=== PATIENT | female | born 1955 | race Caucasian/White ===

== ENCOUNTER → 2016-09-15 | Outpatient (CLI) | payer OTHER ==
[~2016-09-15] MED LIST: ALBINS/ NEB; ALBUAER2 INH; ASPI-321 PO; BECL0.3A INH; BIOF500C2 PO; CARB1SOL OP; CETI10TA84 PO; CYAN100020 PO; ESTR1CRE PV; GLUC250C PO; HYDR25TA5 PO; LORA-741 PO; METO25TA56 PO; MOME50SP5 NAE; MULT-506 PO; OMG3 PO; TIOT1AER2 INH
--- NOTE | 2016-09-16 17:13 | MAMMOGRAPHY REPORT ---
BILATERAL DIGITAL SCREENING MAMMOGRAM TOMOSYNTHESIS WITH CAD: 09/15/2016 CLINICAL HISTORY: Routine screening. Patient has no complaints. TECHNIQUE: Breast tomosynthesis in addition to standard 2D mammography was performed. Current study was also evaluated with a Computer Aided Detection (CAD) system. COMPARISON: Comparison is made to exams dated: 08/15/2015 mammogram, 08/06/2014 mammogram, 08/27/2015 mammogram, 08/06/2014 ultrasound, 03/21/2013 mammogram, and 09/23/2010 mammogram - [facility]. BREAST COMPOSITION: There are scattered areas of fibroglandular density in both breasts. FINDINGS: There are multiple bilateral circumscribed masses scattered in the breasts, some of which are fluctuating comparing to prior mammograms. There are diffuse bilateral benign-appearing microca lcifications, most likely representing fibrocystic changes. Mild vascular calcifications as well. No new suspicious spiculated or irregular mass, architectural distortion or cluster of new suspiciou s microcalcifications is seen. IMPRESSION: ACR BI-RADS CATEGORY 1: NEGATIVE There is no mammographic evidence of malignancy. A 1 year screening mammogram is recommended. The p atient will receive written notification of the results. Approximately 10% of breast cancers are not detected with mammography. A negative mammographic repor t should not delay biopsy if a clinically suggestive mass is present. Shobha Sims M.D. ay/:09/16/2016 16:37:45 Ethnic Studies Professor: Madison BRIDGES(Miguel)(Kaci), [facility] letter sent: Normal 1/2 BI-RADS Code: ACR BI-RADS Category 1: Negative
== END | disposition home or self-care (01) ==
LOC: C.MAMM 08:44
PROVIDERS: ATTEND Obstetrics & Gynecology
DX: Z12.31 Encounter for screening mammogram for malignant neoplasm of breast (principal)

== ENCOUNTER → 2017-08-06 | Outpatient (CLI) | payer OTHER ==
[2017-08-06 12:54] LABS: BASO % 0.6 %; BASO ABS # 0.03 K/uL (0-0.2); EOS % 2.7 %; EOS ABS # 0.14 K/uL (0-0.5); HEMATOCRIT 41.2 % (37-47); HEMOGLOBIN 13.6 g/dL (12.0-16.0); IG# 0.01 K/uL (0.00-0.02); LYMPH % 35.8 %; LYMPH ABS # 1.89 K/uL (1.2-3.4); MEAN CELL VOLUME 94.5 fL (80-100); MEAN CORPUSCULAR HEMOGLOBIN 31.2 pg (25-34); MEAN PLATELET VOLUME 11.2 fL (7.4-10.4); MONO % 10.8 %; MONO ABS # 0.57 K/uL (0.11-0.59); NEUT % 49.9 %; NEUT ABS # 2.64 K/uL (1.4-6.5); PLATELET COUNT 253 K/uL (130-400); RED CELL DISTRIBUTION WIDTH CV 14.5 % (11.5-14.5); RED CELL DISTRIBUTION WIDTH SD 49.8 fL (36.4-46.3); WHITE BLOOD COUNT 5.28 K/uL (4.8-10.8)
[2017-08-06 13:16] LABS: BLOOD UREA NITROGEN 18 mg/dl (7-18); CALCIUM 8.9 mg/dl (8.5-10.1); CARBON DIOXIDE 31 mmol/L (21-32); CREATININE 0.86 mg/dl (0.60-1.20); GLUCOSE 89 mg/dl (70-99); POTASSIUM 3.6 mmol/L (3.5-5.1); SODIUM 140 mmol/L (136-145)
== END | disposition home or self-care (01) ==
LOC: C.LABPVFM 07:47
PROVIDERS: ATTEND Family Medicine
DX: R53.83 Other fatigue (principal)

== ENCOUNTER → 2017-10-22 | Outpatient (CLI) | payer OTHER ==
--- NOTE | 2017-10-25 13:59 | MAMMOGRAPHY REPORT ---
BILATERAL DIGITAL SCREENING MAMMOGRAM TOMOSYNTHESIS WITH CAD: 10/22/2017 CLINICAL HISTORY: Routine screening. TECHNIQUE: Breast tomosynthesis in addition to standard 2D mammography was performed. Current study was also evaluated with a Computer Aided Detection (CAD) system. COMPARISON: Comparison is made to exams dated: 09/15/2016 mammogram, 08/15/2015 mammogram, 08/06/2014 ma mmogram, 03/21/2013 mammogram, 12/01/2011 mammogram, and 09/23/2010 mammogram - [facility]. BREAST COMPOSITION: There are scattered areas of fibroglandular density in both breasts. FINDINGS: No suspicious masses, calcifications, or areas of architectural distortion are noted in ei ther breast. There has been no significant interval change compared to prior exams. Scattered bilate ral circumscribed benign-appearing masses are again noted. A dominant mass within the right upper out er quadrant contains coarse popcorn calcifications and is consistent with a degenerating fibroadenoma . Other scattered bilateral benign-appearing calcifications are also not significantly changed. IMPRESSION: ACR BI-RADS CATEGORY 2: BENIGN There is no mammographic evidence of malignancy. A 1 year screening mammogram is recommended. The pa tient will receive written notification of the results. Approximately 10% of breast cancers are not detected with mammography. A negative mammographic report should not delay biopsy if a clinically suggestive mass is present. Nessa Yu M.D. /:10/22/2017 16:19:45 Principal Product Manager: Madison GOMEZ)(Kaci), [facility] letter sent: Normal 1/2 BI-RADS Code: ACR BI-RADS Category 2: Benign
== END | disposition home or self-care (01) ==
LOC: C.MAMM 08:56
PROVIDERS: ATTEND Obstetrics & Gynecology
DX: Z12.31 Encounter for screening mammogram for malignant neoplasm of breast (principal)

== ENCOUNTER 2022-10-20 06:48 | Observation (INO) ==
--- NOTE | 2022-09-24 14:56 | PAT Medication Instructions ---
Medication Instructions Date of Service September 24, 2022 Home Medications Medication Instructions Recorded lorazepam 0.5 mg tablet 0.5 mg PO DAILY PRN anxiety #30 10/07/21 tabs hydrochlorothiazide 25 mg tablet 25 mg PO DAILY #90 tabs 10/20/21 albuterol sulfate 90 mcg/actuation 2 puff inhalation Q4H PRN 06/12/22 aerosol inhaler (ProAir HFA) shortness of breath or wheezing #3 Inhalers budesonide 180 mcg/actuation 1 inh inhalation BID #3 Inhalers 07/31/22 breath activated powder inhaler (Pulmicort Flexhaler) meclizine 25 mg tablet 25 mg PO TID PRN dizziness #60 tabs 09/21/22 albuterol sulfate 2.5 mg/3 mL 2.5 mg (3 mL) inhalation DAILY 09/23/22 (0.083 %) solution for nebulization #180 mL Medication List cetirizine 10 mg capsule (Zyrtec) 10 mg PO DAILY PRN FOR ALLERGY RELIEF cholecalciferol (vitamin D3) 50 mcg (2,000 unit) tablet (Vitamin D3) 2,000 unit PO QAM multivitamin 2 tab PO QAM vit C 50 mg-E 15 unit-zinc cit 4.5 mg-lutein 2.5 mg-zeaxan chew tablet ([facility] [place]) 1 tab PO QAM acetaminophen 500 mg tablet (Tylenol Extra Strength) 500 - 1,000 mg PO .COMPLEX PRN Pain levalbuterol HCl 1.25 mg/3 mL solution for nebulization 1.25 mg inhalation .COMPLEX PRN SHORT OF BREATH lorazepam 0.5 mg tablet 0.5 mg PO DAILY PRN anxiety hydrochlorothiazide 25 mg tablet 25 mg PO DAILY albuterol sulfate 90 mcg/actuation aerosol inhaler (ProAir HFA) 2 puff inhalation Q4H PRN shortness of breath or wheezing budesonide 180 mcg/actuation breath activated powder inhaler (Pulmicort Flexhaler) 1 inh inhalation BID meclizine 25 mg tablet 25 mg PO TID PRN dizziness Prevagen 1 cap PO QAM albuterol sulfate 2.5 mg/3 mL (0.083 %) solution for nebulization 2.5 mg (3 mL) inhalation DAILY amino acids (Amino Acid capsule) 1 cap PO UD calcium carbonate 500 mg-vitamin D3 10 mcg (400 unit) tablet (Calcium 500 + D) 1 tab PO QAM carboxymethylcellulose 1 %-glycerin 0.9 % eye gel drops (Refresh Optive) 1 drp ophthalmic (eye) HS cyanocobalamin (vitamin B-12) 2,000 mcg tablet,extended release (Vitamin B-12 ER) 2,000 mcg PO QAM ibuprofen 200 mg capsule 600 mg PO TID PRN Pain Continue as directed IF TAKING MORNING OF SURGERY, TAKE WITH A SMALL SIP OF WATER. OTHERWISE NOTHING TO EAT OR DRINK AFTER MIDNIGHT acetaminophen 500 mg tablet (Tylenol Extra Strength) 500 - 1,000 mg PO .COMPLEX PRN Pain levalbuterol HCl 1.25 mg/3 mL solution for nebulization 1.25 mg inhalation .COMPLEX PRN SHORT OF BREATH lorazepam 0.5 mg tablet 0.5 mg PO DAILY PRN anxiety albuterol sulfate 90 mcg/actuation aerosol inhaler (ProAir HFA) 2 puff inhalation Q4H PRN shortness of breath or wheezing budesonide 180 mcg/actuation breath activated powder inhaler (Pulmicort Flexhaler) 1 inh inhalation BID albuterol sulfate 2.5 mg/3 mL (0.083 %) solution for nebulization 2.5 mg (3 mL) inhalation DAILY meclizine 25 mg tablet 25 mg PO TID PRN dizziness ASK your surgeon for instructions ibuprofen 200 mg capsule 600 mg PO TID PRN Pain STOP taking 2 weeks before surgery vit C 50 mg-E 15 unit-zinc cit 4.5 mg-lutein 2.5 mg-zeaxan chew tablet ([facility]) 1 tab PO QAM Prevagen 1 cap PO QAM amino acids (Amino Acid capsule) 1 cap PO UD DO NOT take the morning of surgery cetirizine 10 mg capsule (Zyrtec) 10 mg PO DAILY PRN FOR ALLERGY RELIEF cholecalciferol (vitamin D3) 50 mcg (2,000 unit) tablet (Vitamin D3) 2,000 unit PO QAM multivitamin 2 tab PO QAM hydrochlorothiazide 25 mg tablet 25 mg PO DAILY cyanocobalamin (vitamin B-12) 2,000 mcg tablet,extended release (Vitamin B-12 ER) 2,000 mcg PO QAM calcium carbonate 500 mg-vitamin D3 10 mcg (400 unit) tablet (Calcium 500 + D) 1 tab PO QAM Take evening before surgery cetirizine 10 mg capsule (Zyrtec) 10 mg PO DAILY PRN FOR ALLERGY RELIEF (okay to take if you typically take in PM) carboxymethylcellulose 1 %-glycerin 0.9 % eye gel drops (Refresh Optive) 1 drp ophthalmic (eye) HS Other Notes If you have any questions please call us at [phone] or [phone] or [phone] or [phone]
--- NOTE | 2022-09-28 09:31 | Anesthesiology Consultation ---
Date of Service September 28, 2022 Assessment & Plan (1) Encounter for pre-operative examination: - COVID screening: Per assessment on 09/28: No known COVID-19 positive contacts. Travel screen negative. Patient vaccinated. Patient did report a few days of congestion/runny nose starting mid 09/2022 - per patient has this is chronic issue that happens intermittently in setting of allergies (no change from baseline)- currently feeling well. Covid test done at PAT 09/28/22 was negative. - PCP office visit (09/21/22): "BPV.. patient notes that her vertigo is starting to act up. She has had the Edilson maneuver in the past, which seemed to help.. She would like to F/U with physical therapy.. ERxed Meclizine.. Pain Right 2nd toe.. patient notes that her fingers and toes get cold. Her toes are usually not bad with use of socks and shoes.. on exam, patient's toe has some tenderness at the tip. Does not appear to be significant arthritis. No skin breakdown to indicate an ulcer. patient does have good pulses in her Right foot.. etiology unclear.. DDx includes gout, however the joints of her toe do not seem to be involved.. early infection / ulcer: possible, but if this is present, then it is mild. Consider starting antibiotics to possibly cover for this.. consider F/U with podiatry.. Raynaud phenomenon.. patient has cold fingers / toes" > Per update with patient 09/29/22, toe pain improved. Advised to contact PAT/PCP if recurrence/worsening prior to surgery. - Cardiology office visit (09/24/22): "Patient's only cardiac history dates back to 2008 when she had an episode of atrial fibrillation. She spontaneously converted back to normal sinus rhythm and her subsequent workup was unremarkable. She had a structurally and functionally normal heart. Subsequent cardiac monitoring did not show any recurrence of atrial fibrillation.. EKG was done today and shows a normal sinus rhythm at 69 bpm with a nonspecific ST abnormality. No change when compared to 10/27/2014 tracing.. Based on the patient's functional status without limiting cardiopulmonary symptoms and her stable EKG tracing -- patient is an acceptable surgical risk to proceed with surgery as scheduled. There is no need for further ischemic workup at this time..She was encouraged to monitor her infrequent palpitations -- and if in the future she has a fast erratic pulse, sustained elevated pulse rate, etc she should have further evaluation in case it is a recurrence of atrial fibrillation. We would then provided rate lowering medications and anticoagulation. Her [id number] is 3 based on her age, gender, and hypertension. Patient agrees with this plan. All of her questions were answered to her satisfaction." - Outpatient joint assessment: Pt currently scheduled for inpatient pathway. If surgeon requests review for outpatient joint pathway, patient is not recommended candidate for outpatient joint program from anesthesia standpoint. - Chlorhexidine/Hibiclens allergy: Severe hives listed in allergies. Per patient, she believes this was with cleanser used perioperatively in the past. Chlorhexidine wipes not given at PAT visit. Chart Review Chart Review: Acceptable Risk for Surgery and Patient seen in Pre Admission Testing Teaching & Discussion Pre-Anesthesia Teaching/Discussion Notes: Instructed NPO after midnight before surgery,except medications with 15 cc of water. Medication instructions provided according to the PAT guidelines. History Surgery Operation Date: 10/20/22 10:40 Proposed Procedures p Right Total Knee Arthroplasty - Rachid Ann MD Height/Weight Height: 5 ft 4 in Weight: 69.3 kg Allergies Allergy/AdvReac Type Severity Reaction Status Date / Time chlorhexidine Allergy Severe Severe Verified 09/28/22 11:28 hives bacitracin Allergy Intermediate Hives Verified 09/24/22 10:41 [From Neosporin ([id number])] cefuroxime Allergy Intermediate Hives Verified 09/24/22 10:41 neomycin Allergy Intermediate Hives Verified 09/24/22 10:41 polymyxin B Allergy Intermediate Hives Verified 09/24/22 10:41 prednisone Allergy Intermediate Hives Verified 09/24/22 10:41 Sulfa (Sulfonamide Allergy Intermediate Hives Verified 09/28/22 11:28 Antibiotics) sulfamethoxazole Allergy Intermediate Hives Verified 09/28/22 11:28 tetracycline Allergy Intermediate Hives Verified 09/28/22 11:28 zinc Allergy Intermediate Hives Verified 09/28/22 11:28 adhesive Allergy Mild Bandaids/ta Verified 09/28/22 11:28 pe levofloxacin [From Levaquin] AdvReac Severe Severe Verified 09/24/22 10:41 joint pain gabapentin AdvReac Intermediate Palpitation Verified 09/28/22 11:28 s meperidine AdvReac Mild Arm pain x Verified 09/28/22 11:28 3 days ("upset veins") metronidazole AdvReac Mild Thrush Verified 09/28/22 11:28 Medications Home Medications Medication Instructions Recorded Confirmed Last Taken cetirizine 10 mg capsule (Zyrtec) 10 mg PO DAILY PRN FOR ALLERGY 03/16/19 09/24/22 04/03/19 RELIEF cholecalciferol (vitamin D3) 50 2,000 unit PO QAM 03/16/19 09/24/22 04/04/19 09:00 mcg (2,000 unit) tablet (Vitamin D3) multivitamin 2 tab PO QAM 03/16/19 09/24/22 04/04/19 09:00 vit C 50 mg-E 15 unit-zinc cit 4.5 1 tab PO QAM 03/16/19 09/24/22 Unknown mg-lutein 2.5 mg-zeaxan chew tablet ([facility] [employer]) acetaminophen 500 mg tablet 500 - 1,000 mg PO .COMPLEX PRN Pain 04/25/19 09/24/22 Unknown (Tylenol Extra Strength) levalbuterol HCl 1.25 mg/3 mL 1.25 mg inhalation .COMPLEX PRN 04/25/19 09/24/22 Unknown solution for nebulization SHORT OF BREATH lorazepam 0.5 mg tablet 0.5 mg PO DAILY PRN anxiety #30 10/07/21 09/24/22 Unknown tabs hydrochlorothiazide 25 mg tablet 25 mg PO DAILY #90 tabs 10/20/21 09/24/22 Unknown albuterol sulfate 90 mcg/actuation 2 puff inhalation Q4H PRN 06/12/22 09/24/22 Unknown aerosol inhaler (ProAir HFA) shortness of breath or wheezing #3 Inhalers budesonide 180 mcg/actuation 1 inh inhalation BID #3 Inhalers 07/31/22 09/24/22 Unknown breath activated powder inhaler (Pulmicort Flexhaler) meclizine 25 mg tablet 25 mg PO TID PRN dizziness #60 tabs 09/21/22 09/24/22 Unknown Prevagen 1 cap PO QAM 09/23/22 09/24/22 Unknown albuterol sulfate 2.5 mg/3 mL 2.5 mg (3 mL) inhalation DAILY 09/23/22 09/24/22 Unknown (0.083 %) solution for nebulization #180 mL amino acids (Amino Acid capsule) 1 cap PO UD 09/23/22 09/24/22 Unknown calcium carbonate 500 mg-vitamin 1 tab PO QAM 09/23/22 09/24/22 Unknown D3 10 mcg (400 unit) tablet (Calcium 500 + D) carboxymethylcellulose 1 1 drp ophthalmic (eye) HS 09/23/22 09/24/22 Unknown %-glycerin 0.9 % eye gel drops (Refresh Optive) cyanocobalamin (vitamin B-12) 2,000 mcg PO QAM 09/23/22 09/24/22 Unknown 2,000 mcg tablet,extended release (Vitamin B-12 ER) ibuprofen 200 mg capsule 600 mg PO TID PRN Pain 09/23/22 09/24/22 Unknown Past Medical History Medical History Anxiety Asthma well controlled. Atrial fibrillation HX OF 2008 (NO INTERVENTION REQUIRED) - no current problems. follows with Chronic rhinitis Degenerative disc disease Depression Dry eye syndrome Essential tremor benign essential tremor GERD (gastroesophageal reflux disease) History of COVID-19 Summer 2021 - mild cold symptoms. Hyperlipidemia BORDERLINE ELEVATED Kidney stones Migraine HX OF Obstructive sleep apnea no longer uses the machine. Osteoarthritis Osteoarthritis of knees, bilateral Osteoporosis Overactive bladder Palpitations occasionally -- follows with Dr Ames. Temporomandibular joint disorder night grinding, uses a mouth guard. never locked Vertebral compression fracture Vertigo recently flared up. has meclizine if needed. Exercise / Class Metabolic Activity III < 4 Walking/Shop/Light housework (one FS (no CP, + SOB)) Past Family History Family History Father Family history of diabetes mellitus Alzheimer disease Diabetes Mother Family hx of colon cancer Alzheimer disease Breast cancer Thyroid disease Aunt Breast cancer maternal Ovarian cancer maternal Past Surgical History Surgical History Family history of reaction to anesthesia MOTHER-TROUBLE WAKING UP FROM H/O laparoscopy diagnostic History of appendectomy History of arthroscopy RT KNEE History of breast biopsy History of cardiac cath 2007 (NO STENTS) History of cataract surgery RT/LEFT History of colonoscopy History of tooth extraction Retinal tear of both eyes REPAIRED VIA LASER SURGERY S/P excision of lipoma from buttock and back. S/P total abdominal hysterectomy with BSO and posterior repair. Past Anesthesia History No Hx of Anesthesia Complications Mother- slow to wake History of PONV No Hx of PONV and Hx of Motion Sickness (+ Vertigo) Social History Smoking Status: Never smoker Do You Dip or Chew Tobacco: No Hx Alcohol Use: Yes Alcohol type: wine alcohol intake frequency: a few times a month Hx Substance Use: No substance use type: does not use Review of Systems Rare palpitations. Chronic allergies- congestion/runny nose. Patient denies chest pain, shortness of breath, fever, chills, cough, wheezing. Physical Exam Vital Signs VITALS BP 120/81 P 65 TEMP 98.4 SP02 99%RA RESP 16 PHYSICAL Full cervical extension range of motion. Full TMJ range of motion. TMD 3 finger breaths Mallampati Score 1 Dentition: missing side, + several crowns Lungs: clear throughout to auscultation Cardiac: regular rate and rhythm, no murmurs noted Spine: normal Carotid arteries: negative bruit Extremities: no edema Lab Results Anesthesia Preop Results Results Anesthesia Widget: WBC 4.79 K/ul (4.8-10.8) L 09/28/22 Hgb 13.8 g/dl (12.0-16.0) 09/28/22 Hct 40.4 % (37.0-47.0) 09/28/22 Plt 258 K/uL (130-400) 09/28/22 Na 140 mmol/L (136-145) 09/28/22 K 3.7 mmol/L (3.5-5.1) 09/28/22 Cl 103 mmol/L (98-107) 09/28/22 CO2 32 mmol/L (21-32) 09/28/22 BUN 23 mg/dl (6-23) 09/28/22 Creat 0.85 mg/dl (0.6-1.2) 09/28/22 Glucose Level 80 mg/dl (70-99(Fasting)) 09/28/22 PT 11.4 Seconds (9.0-12.0) 09/28/22 PTT 27.7 Seconds (21.0-31.0) 09/28/22 INR 1.1 (0.9-1.1) 09/28/22 TSH 1.529 uIu/ml (0.300-4.500) 09/22/22 Blood Type O Positive 09/28/22 Antibody Screen NEGATIVE 09/28/22 Testing Electrocardiogram Date: 09/24/22 NSR at 66bpm. NS STA. No change compared to 10/27/14 per aircraft worker comparison. Chest X-Ray Date: 09/28/22 FINDINGS: Lung volumes are normal. There is no consolidation to suggest pneumonia. A density along the left heart border is unchanged since chest radiograph of June 22, 2014. There is no pneumothorax or pleural effusion. Cardiac size is normal. Mediastinal contours are normal. There is no evidence for pulmonary edema. Calcified density within the right breast projects over the right lower lung. IMPRESSION: No acute cardiopulmonary findings. COVID-19 Risk Screen Screening Information COVID-19 Screen Date: 09/28/22 Exposure 21 Days Family/Household +COVID Last 21 Days: No Exposure 10 Days Any COVID Exposure Last 10 Days: No Symptoms Last 10 Days Experienced COVID Sx Last 10 Days: Yes Sx Experienced Last 10 Days: Congestion/Runny Nose Covid Sx 10 Day Pathway: If patient has symptoms, they should follow up with their PCP/surgeon to be COVI D -19 tested and for further instructions related to their illness. Order COVID Testing COVID-19 Test Result pathway: * If the COVID Test is Negative, other risk factors are acceptable, and the patient is feeling well; proceed with procedure. * If the COVID-19 test is Positive: * Elective procedures will be cancelled/rescheduled per Policy 1096. * Urgent or Emergent procedures will need documentation that the procedure is medically necessary and precautions implemented per Policy 1096. Policies and Procedures Refer to Policy and Procedure 1096 for Initiation & Discontinuation of Transmission-Based Precautions for Confirmed and Suspected SARS-CoV-2 Infection which can be found on the Intranet in the Clinical Resources Manual by clicking on the link below: [email or web address]%20Disco ntinuation%20of%20Transmission.pdf#search=discontinuation%20of%20Transmission%2D Based + COVID 0-90 Days COVID + in Last 0-90 Days: No
--- NOTE | 2022-10-16 09:25 | History and Physical Report ---
CHIEF COMPLAINT: Right knee pain and discomfort. HISTORY OF PRESENT ILLNESS: A 66-year-old female with a long history of right knee pain and discomfo rt and describes it has gotten worse over time. Pain is mostly medial, but some global pain. The mo re she is up and on her leg, the more it hurts. It swells up more as the day goes on. She limps mor e as the day goes on. She has been through extensive conservative treatment and the injections just do not help anymore. She would like to have her right knee fixed. PAST MEDICAL HISTORY: 1. History of atrial fibrillation one episode without recurrence back in 2008. 2. Hypertension. 3. Asthma. 4. Sleep apnea with CPAP machine. 5. Back pain/sciatica. PAST SURGICAL HISTORY: Includes: 1. Appendectomy. 2. Hysterectomy. 3. Heart catheterization. 4. Lipoma removal. 5. Hip surgery. 6. Cataract surgery. 7. Retina surgery. ALLERGIES: HIBICLENS, WHICH CAUSES HIVES. ALSO, DESCRIBES ALLERGIES TO PREDNISONE AND CEFUROXIME. CURRENT MEDICATIONS: Include: 1. Tylenol. 2. Albuterol. 3. Pulmicort. 4. Zyrtec. 5. Vitamin B12. 6. Glucosamine. 7. Hydrochlorothiazide. 8. Lorazepam. 9. Levalbuterol. 10. Meclizine. 11. Metoprolol. 12. Multivitamin. 13. Ocuvite. SOCIAL HISTORY: A 66-year-old female. She does not smoke. No significant alcohol intake. FAMILY HISTORY: Noncontributory. REVIEW OF SYSTEMS: Negative for diabetes. Denies any chest pain or shortness of breath. No history of DVT or PE. No known bleeding problems. PHYSICAL EXAMINATION: GENERAL: Shows a pleasant middle-aged female, looks in reasonably good health. HEENT: Benign. NECK: Supple. No lymphadenopathy. LUNGS: Clear to auscultation. HEART: Regular rate and rhythm. ABDOMEN: Soft, nontender, nondistended. EXTREMITIES: Grossly neurovascularly intact except as follows. Examination of the right leg and knee revealed patient ambulates independently. She does limp on the right side. She has got varus alignment to her right knee. Tender over the medial joint line. Sma ll knee effusion. Range of motion 5-125. No instability. No pain with hip motion. X-RAYS: X-rays of the right knee reviewed. It shows advanced right knee DJD. She has complete loss of medial joint space. Osteophytes medially. This has progressed over the past year. ASSESSMENT: A 66-year-old female with a history of atrial fibrillation, hypertension, asthma, sleep apnea, and back pain/sciatica with advanced right knee degenerative joint disease. She has failed co nservative measures and would like to have her right knee replaced. PLAN: We will proceed with right total knee replacement. The risks and benefits of this procedure w ere explained to the patient and include but not limited to DVT, PE, , infection, neurological i njury, vascular injury, bleeding problem, pain, limited range of motion, incomplete relief of symptom s, etc. The patient understands and desires to proceed. Informed consent was obtained. She does live by herself. Her daughter is going to come and assist in her care. She is hoping to be discharged to home with some home health. Job ID: [id number]
[~2022-10-20 06:48] MED LIST changes: +ACETAMINOPHEN 500 MG TAB PO SCH; -ALBINS/ NEB; -ALBUAER2 INH; +ALLERGY Noted to ORDERED Medication SCH; -ASPI-321 PO; -BECL0.3A INH; -BIOF500C2 PO; +BUPIVACAINE 0.5 % 5 MG/1 ML PF 10ML VIAL ONE; +BUPIVACAINE LIPOSOME/PF 266 MG, BUPIVACAINE/EPINEPHRINE 50 ML, SODIUM CHLORIDE 0.9% PF ... INFIL SCH; -CARB1SOL OP; -CETI10TA84 PO; -CYAN100020 PO; +CeleBREX 200 MG CAP PO SCH; -ESTR1CRE PV; +FAMOTIDINE 20 MG TAB PO SCH; -GLUC250C PO; -HYDR25TA5 PO; -LORA-741 PO; +LR 500ML BOLUS, THEN 15ML/HR IV SCH; +LR 60ML/HR IV SCH; -METO25TA56 PO; +METOCLOPRAMIDE HCL 10 MG TABLET PO SCH; -MOME50SP5 NAE; -MULT-506 PO; -OMG3 PO; +ROPIVACAINE 0.5% 5 MG/ML 30 ML VIAL ONE; +Scopolamine 1 MG TDSY TD SCH; -TIOT1AER2 INH; +TRANEXAMIC ACID 1,000 MG **IV Intra-op IV SCH
--- NOTE | 2022-10-20 06:57 | History & Physical Bridge Note ---
Date of Service October 20, 2022 History & Physical Bridge Note I have examined the patient, reviewed the History & Physical and in the interval since the performance of the History & Physical I have noted the following changes of clinical significance: no changes noted
[2022-10-20] MEDS ORDERED: MIDAZOLAM HCL 1 MG/ML 2ML VIAL ONE ×2 (08:08)
[2022-10-20] MEDS ORDERED: PROPOFOL IV EMULSION 10 MG/ML 20 ML VIAL IV ONE (08:11)
[2022-10-20] MEDS ORDERED: HYDROmorphone INJ 2 MG/ML SYR/VIAL IV PRN (08:31)
[2022-10-20] MEDS ORDERED: ATROPINE SULFATE 0.1 MG/ML 10ML SYR IV PRN (08:31)
[2022-10-20] MEDS ORDERED: ePHEDrine sulfate 50 MG/ML AMP IV PRN (08:31)
[2022-10-20] MEDS ORDERED: fentaNYL citrate PF 100 MCG/2 ML VIAL IV PRN (08:31)
[2022-10-20] MEDS ORDERED: ONDANSETRON INJ 2 MG/ML 2 ML VIAL IV PRN ×2 (08:31→11:46)
[2022-10-20] MEDS ORDERED: ceFAZolin 2,000 MG/15 ML IV PUSH IV ONE (08:37)
[2022-10-20] MEDS ORDERED: BUPIVACAINE/EPINEPHRINE 0.25% 1:200,000 30 ML VIAL ONE (09:10)
[2022-10-20] MEDS ORDERED: BUPIVACAINE LIPOSOME 1.3% 266 MG/20 ML VIAL ONE (09:11)
[2022-10-20] MEDS ORDERED: SODIUM CHLORIDE 0.9% PF 50 ML VIAL ONE (09:12)
[2022-10-20] MEDS ORDERED: DEXAMETHASONE SOD INJ 4 MG/ML VIAL ONE (10:19)
[2022-10-20] MEDS ORDERED: KETOROLAC 30 MG/ML VIAL ONE (10:19)
--- NOTE | 2022-10-20 10:51 | Operative Report ---
PG Post Operative Report Pre & Post Diagnosis Operation Date: 10/20/22 08:50 Pre-Op Diagnosis: Advanced right knee degenerative joint disease Post-Op Diagnosis: Advanced right knee degenerative joint disease I identified the patient and participated in the time-out.: Yes Procedure Operation Date: 10/20/22 08:50 Actual Procedures p Right Total Knee Arthroplasty(Right) - Rachid Ann MD Surgeon Rachid Ann MD Key Account Manager Adrian Duarte PA-C Estimated Blood Loss 50 Findings Consistent with Post-Op Diagnosis Operative findings were advanced right knee DJD. She had extensive grade 4 [id number] disease of the medial compartment. The rest of her knee looked pretty well-preserved. She had osteophytes medially. Eburnation of the bone as well. Moderate-sized joint effusion. Slight fixed varus deformity to her knee. Specimens Right knee sent for pathology Drains None Anesthesia Type General Complications none Disposition Accompanied Patient To Recovery: No Indications Patient is a 66-year-old female is had a several year history of increasing right knee pain discomfort has become less responsive conservative care. It started affect her quality of life and ability maintain any degree of active lifestyle. X-rays show advanced knee arthritis. She failed conservative measures and elected proceed with total knee arthroplasty. Description of Procedure Operative implants consist of: 1 Biomet Vanguard size 67.5 right posterior stabilized femoral component. 2. Biomet size 67 tibial tray. 3. 10 mm posterior stabilized Lyes polyethylene insert. 4. 28 x 8 all poly patella. The patient was taken the operating, identified, placed on the operating table supine position but all contact areas were appropriately padded. IV antibiotics tried by anesthesia team. A spinal anesthetic and abductor canal block had provided in the holding area. Colunga catheter was placed in sterile fashion and a right thigh high tourniquet was then placed in the right lower extremity then prepped and draped in usual sterile fashion. The right leg was elevated exsanguinated with use of an Esmarch and the to urniquet was set at 300 mmHg. An anterior approach of the right knee was then performed to longitudinal incision centered over the patella. Sharp dissection was carried through subcutaneous tissue down the extensor mechanism. A medial parapatellar arthrotomy incision was made. Some subperiosteal dissection was carried out medially. The fat pad was dissected from Neath patella tendon. Lateral patellofemoral ligament was released. Patella subluxated laterally and the knee was flexed. The osteophytes were taken off distal femur. The ACL and PCL were then released from the distal femur the tibia subluxated anteriorly. The external tibial alignment jig was then placed in the interface the tibia and adjusted 14 mm medially. Proximal tibial cut was made to remove about a millimeter or 2 of bone from most deficient aspect medial tibial plateau. The tibia was sized to a size 67. Attention drawn the femur. The distal femur examined the sharp drop with intramedullary canal was suction. A right 5 degree valgus cutting guide was placed. Distal femoral cutting block was pinned in place. Distal femoral cut was made to take an additional 3 mm of bone off distal femur. The femur was then sized to a size 67.5. The AP cutting block was pinned parallel to the epicondylar axis which was 3 degrees of external rotation. Anterior cut, anterior chamfer, posterior cut, posterior chamfer cuts were made. The box cutting guide was placed in just slight lateral box cut was made. The knee was flexed. The remnants of the medial and lateral menisci were excised. The osteophytes taken off the posterior aspect the femur. A trial femoral component was placed. The tibial tray was pinned in maximum external rotation and the drill and stem punch were used to create defect in proximal tibia for the tibial tray. Knee was then trialed and the 10 mm insert fit most appropriately. Attention drawn the patella. The patella was cleaned of all soft tissues. Patella thickness measured 19 mm in thickness and was cut down to 12. Was sized to a size 28 patella. The lug holes were drilled for the 28 patella. Lateral osteophytes removed. Patella button was placed. Knee was taken through range of motion and the patella tracked nicely with no thumbs test. Attention drawn to placing permanent components. Nupathe all trial components were removed. A bone plug was placed into the distal femur limit blood loss. Double batch Palacos G cement was mixed. A Biomet Vanguard size 67.5 right posterior stabilized femoral component, size 67 tibial tray, 10 mm posterior stabilized polyethylene insert, and a 28 x 8 all Paller patella then cemented in place. The knee was brought out into full extension till cement hardened. Final cement check was then performed. The pericapsular tissues were injected with total of 100 cc of combination of 20 cc of Exparel, 30 cc normal saline, 50 cc of quarter percent Marcaine with epinephrine. Patient did receive 1 g of tranexamic acid but the tourniquet was let down for final tourniquet time of 50 minutes. Hemostasis reduced electrocautery. Extensor mechanism closed with combination 1 PDS suture and 1 Vicryl suture in a [id number] fashion. Extensor mechanism checked found to be intact with subcutaneous tissue then closed with 2 Dexon suture in a buried interrupted fashion skin was closed skin cheryle. Leg was then cleaned and dried a sterile dressing with Xeroform, 4 fours, sterile cast padding, ABD pad, Sam bandage was applied. The patient then transferred to the recovery room in stable condition. Patient tolerated the procedure well and there were no complications. Adrian Duarte, my physician marketing administrative assistant, was present for the entire procedure. His assistance was essential and required for appropriate patient positioning, prepping and draping, surgical exposure, performing the technical details of the operation, placement the implants, closure of the wound, and placement of the sterile bandage. I attest to the content of the Intraoperative Record and any orders documented therein. Any exceptions are noted below.
--- NOTE | 2022-10-20 10:54 | XRay Report ---
RIGHT KNEE 2 VIEWS History: Right total knee arthroplasty. Degenerative arthritis. Postop. FINDINGS: The patient is status post a right total knee arthroplasty. The hardware is intact. No frac ture or dislocation. Skin cheryle are in place. IMPRESSION: Right total knee arthroplasty. No evidence for hardware complication. ACT 112: Negative or not required by law. Electronically signed by: Alessio Bowen M.D. 10/20/2022 10:53 AM
[2022-10-20] MEDS ORDERED: METOCLOPRAMIDE HCL INJ 5 MG/ML 2 ML VIAL IV PRN (11:46)
[2022-10-20] MEDS ORDERED: HYDROmorphone INJ 0.5 MG/0.5 ML SYR IV PRN (11:46)
[2022-10-20] MEDS ORDERED: MAGNESIUM HYDROXIDE SUSP 30 ML UDC PO PRN (11:46)
[2022-10-20] MEDS ORDERED: NON-FORMULARY MEDICATION (Amino Acids [Amino Acid] Capsule) PO SCH (11:46)
[2022-10-20] MEDS ORDERED: MECLIZINE HCL 25 MG TAB PO PRN (11:46)
[2022-10-20] MEDS ORDERED: bisacodyL 10 MG SUPP PR PRN (11:46)
[2022-10-20] MEDS ORDERED: LEVALBUTEROL HCL 1.25 MG/3 ML NEB INH PRN (11:46)
[2022-10-20] MEDS ORDERED: LORazepam 0.5 MG TAB PO PRN (11:46)
[2022-10-20] MEDS ORDERED: SODIUM CHLORIDE 0.9% 1000ML 1,000 ML IV SCH (11:46)
[2022-10-20] MEDS ORDERED: ALUMINUM/MAGNESIUM SUSP 30 ML UDC PO PRN (11:46)
[2022-10-20] MEDS ORDERED: NALOXONE HCL 0.4 MG/1 ML VIAL/CARP IV PRN (11:46)
[2022-10-20] MEDS ORDERED: ALBUTEROL HFA 8 GM INHALER INH PRN (11:46)
--- NOTE | 2022-10-20 12:21 | Anesthesiology Progress Note ---
Date of Service October 20, 2022 Anesthesia Post Procedure Vital Signs Vital Signs: Temp Pulse Pulse Resp BP Pulse Ox O2 Del Method 10/20/22 12:07 36.5 C 65 16 165/87 H 99 Room Air 10/20/22 00:35 36.5 C 65 16 157/85 H 100 Room Air 10/20/22 11:20 36.3 C L 64 16 139/75 100 Room Air 10/20/22 11:10 65 13 139/75 96 Room Air 10/20/22 11:00 70 13 131/74 99 Room Air 10/20/22 10:50 71 16 127/70 100 Oxymask 10/20/22 10:44 36.4 C L 69 15 108/59 L 100 Oxymask 10/20/22 07:29 36.7 C 65 18 161/85 H 99 Room Air O2 Flow Rate 10/20/22 12:07 10/20/22 00:35 10/20/22 11:20 10/20/22 11:10 10/20/22 11:00 10/20/22 10:50 2 10/20/22 10:44 4 10/20/22 07:29 Pain Intensity Right Knee: Pain Intensity: 3 Transfer of Care Handoff Completed per policy Notes Mental Status: alert / awake / arousable and participated in evaluation Patient Amnestic to Procedure: Yes Nausea / Vomiting: adequately controlled Pain: adequately controlled Airway Patency, RR, SpO2: stable & adequate BP & HR: stable & adequate Hydration State: stable & adequate Neuraxial Anesthesia: was administered and sensory block is resolving Anesthetic Complications: no major complications apparent and Pt Satisfied with anesthetic care
[2022-10-20] MEDS: oxyCODONE HCL IR 5 MG TAB (IMMEDIATE RELEASE) PO PRN (12:24)
[2022-10-20] MEDS ORDERED: CETIRIZINE HCL 10 MG TABLET PO PRN (12:25)
[2022-10-20] MEDS: ACETAMINOPHEN 500 MG TAB PO SCH ×2 (13:58→22:06)
[2022-10-20] MEDS ORDERED: TRANEXAMIC ACID / 0.7% NACL 1,000 MG/100 ML BAG IV SCH (16:45)
[2022-10-20] MEDS: Scopolamine CHECK PATCH PLACEMENT SCH ×2 (17:00→23:43)
[2022-10-20] MEDS: ceFAZolin 1000MG 1,000 MG/7.5 ML SYR IV SCH ×2 (17:00→23:45)
[2022-10-20] MEDS: ASCORBIC ACID 500 MG TAB PO SCH (17:01)
[2022-10-20] MEDS: KETOROLAC TROMETHAMINE 15 MG/ML VIAL IV SCH ×2 (17:43→23:44)
[2022-10-20] MEDS: FLUTICASONE FUROATE 200MCG 14 PUFFS/INHALER INH SCH (20:45)
[2022-10-20] MEDS: ASPIRIN 81 MG ECTAB PO SCH (20:46)
[2022-10-20] MEDS: DOCUSATE SODIUM 100 MG CAP PO SCH (20:46)
[2022-10-20] MEDS ORDERED: SENNA 8.6 MG TAB PO SCH (21:00)
[2022-10-20] MEDS ORDERED: CARBOXYMETHYLCELLULOSE GLYCERN OP SCH (21:00)
[2022-10-20] MEDS ORDERED: [UNRECOGNIZED DRUG - OTHER] OP SCH (21:00)
[2022-10-21] MEDS: KETOROLAC TROMETHAMINE 15 MG/ML VIAL IV SCH ×3 (05:12→16:19)
[2022-10-21] MEDS: ACETAMINOPHEN 500 MG TAB PO SCH ×2 (05:12→13:36)
[2022-10-21 07:50] LABS: Hematocrit (blood only) 32.8 % (37.0-47.0); Hemoglobin 11.3 g/dl (12.0-16.0); Mean Corpuscular Hemoglobin 31.6 pg (25.0-34.0); Mean Corpuscular Hgb Conc 34.5 g/dL (32.0-36.0); Mean Corpuscular Volume 91.6 fL (80.0-100.0); Mean Platelet Volume 10.8 fL (9.4-12.4); Platelet Count 208 K/uL (130-400); RDW Coefficient of Variation 12.7 % (11.5-14.5); RDW Standard Deviation 42.5 fL (36.4-46.3); Red Blood Count 3.58 M/uL (4.20-5.40); White Blood Count 11.57 K/ul (4.8-10.8)
[2022-10-21] MEDS ORDERED: dexAMETHasone 10 MG in SYRINGE 0 ML IV SCH (08:00)
[2022-10-21 08:21] LABS: BUN Creatinine Ratio 25.3 (10-20); Calcium 8.4 mg/dl (8.5-10.1); Creatinine Clr Calc Pharmacy 52.8 ml/min; Est GFR (African American) 68.3 ml/min; Potassium 3.6 mmol/L (3.5-5.1)
[2022-10-21] MEDS: ASPIRIN 81 MG ECTAB PO SCH (08:28)
[2022-10-21] MEDS: DOCUSATE SODIUM 100 MG CAP PO SCH (08:28)
[2022-10-21] MEDS: ASCORBIC ACID 500 MG TAB PO SCH ×2 (08:29→17:21)
[2022-10-21] MEDS: Scopolamine CHECK PATCH PLACEMENT SCH ×2 (08:30→16:19)
[2022-10-21] MEDS: oxyCODONE HCL IR 5 MG TAB (IMMEDIATE RELEASE) PO PRN (08:31)
[2022-10-21] MEDS: FLUTICASONE FUROATE 200MCG 14 PUFFS/INHALER INH SCH (08:31)
[2022-10-21] MEDS ORDERED: NON-FORMULARY MEDICATION (Multivitamin Tablet) PO SCH (09:00)
[2022-10-21] MEDS ORDERED: CYANOCOBALAMIN (B-12) 500 MCG TABLET PO SCH (09:00)
[2022-10-21] MEDS ORDERED: CALCIUM 600MG + VIT D 400 IU TAB PO SCH (09:00)
[2022-10-21] MEDS ORDERED: CHOLECALCIFEROL 1,000 UNITS 25 MCG TAB PO SCH (09:00)
[2022-10-21] MEDS ORDERED: NON-FORMULARY MEDICATION (Vit C-E-Zinc Cit-Lutein-Zeaxan [Ocuvite Eye Health] 50 mg-15 uni PO SCH (09:00)
[2022-10-21] MEDS ORDERED: DOCUSATE SODIUM/SENNA 50/8.6MG TAB PO SCH (09:00)
[2022-10-21] MEDS ORDERED: ALBUTEROL 0.083% NEBU SOLN 3 ML VIAL INH SCH (09:00)
[2022-10-21] MEDS ORDERED: MULTIVITAMIN TAB PO SCH (09:00)
[2022-10-21] MEDS ORDERED: NON-FORMULARY MEDICATION (Prevagen 1 CAP) PO SCH (09:00)
[2022-10-21] MEDS ORDERED: hydroCHLOROthiazide 25 MG TAB PO SCH (09:00)
--- NOTE | 2022-10-21 15:53 | Progress Notes ---
DATE OF SERVICE: 10/21/2022. SUBJECTIVE: A 66-year-old white female, postoperative day 1 from right knee replacement. She is doi ng pretty well. Some pain, but very well controlled. No chest pain or shortness of breath. Therapy went well. She is hoping to go home. OBJECTIVE: VITAL SIGNS: Temperature 36.6. Vital signs are stable. GENERAL: Shows a pleasant middle-aged female. She is lying in bed and looks comfortable. LUNGS: Clear to auscultation. HEART: Regular rate and rhythm. ABDOMEN: Soft, nontender, nondistended. EXTREMITIES: Grossly neurovascularly intact except as follows. Examination of the right leg reveals the leg to be well aligned. Dressing is clean, dry and intact. No drainage. She can dorsiflex and plantarflex her foot appropriately. She is neurologically intac t. LABORATORY DATA: Hemoglobin 11.3. Hematocrit 32.8. Electrolytes are stable. ASSESSMENT: A 66-year-old white female, postoperative day 1 from right knee replacement, doing prett y well. Pain is controlled. She is neurologically intact. Therapy went well. PLAN: 1. DVT prophylaxis includes thigh-high TEDs, SCDs, and aspirin twice a day. 2. PT/OT, weightbear as tolerated. Right total knee protocol. 3. Pain control, doing okay with current pain regimen. 4. Disposition: Plan to discharge to home with some home health. Her daughter is going to stay wit h her and that she has some family and friends staying with her after that. Job ID: [id number]
== END 2022-10-21 18:35 | disposition home health service (06) ==
LOC: ASU 06:48 → 3E 06:48
DX: Z88.1 Allergy status to other antibiotic agents; Z88.2 Allergy status to sulfonamides; Z79.82 Long term (current) use of aspirin; Z88.8 Allergy status to other drugs, medicaments and biological substances; M17.11 Unilateral primary osteoarthritis, right knee; Z79.899 Other long term (current) drug therapy